=== PATIENT | female | born 1965 | race Two or more races ===

== ENCOUNTER 2016-12-13 22:39 | Emergency (ER) | payer MEDICAID ==
[~2016-12-13] VITALS: Ht 167.6 cm; Wt 73.0 kg
[~2016-12-13 22:39] MED LIST: ADVIL; THERAFLU
[2016-12-13 22:58] VITALS: BP 155/76
== END 2016-12-14 02:07 | disposition left against medical advice (07) ==
LOC: ER 22:39
DX: R42 Dizziness and giddiness (principal); R41.0 Disorientation, unspecified; I10 Essential (primary) hypertension; Z86.73 Personal history of transient ischemic attack (TIA), and cerebral infarction without residual deficits; Z98.890 Other specified postprocedural states
CPT/HCPCS: 81025; 99283